=== PATIENT | male | born 1970 | race Caucasian/White ===

== ENCOUNTER 2023-08-08 02:13 | Emergency (ER) | payer SELFPAY ==
[~2023-08-08] VITALS: Ht 177.8 cm; Wt 90.0 kg
[2023-08-08 02:15] VITALS: O2SAT 98
[2023-08-08 02:29] VITALS: BP 131/71; PULSE 112; RESP 21; TEMP 98.4
[2023-08-08 04:00] LABS: BASOPHILS % 0.6 % (0.0-2.0); EOSINOPHILS % 1.7 % (0.0-5.0); HEMATOCRIT. 44.6 % (42.0-52.0); HEMOGLOBIN. 15.1 g/dL (14.0-18.0); LYMPHOCYTES % 19.9 % (20.0-50.0); MEAN CORPUSCULAR HEMOGLOBIN 30.6 pg (28.0-32.0); MEAN CORPUSCULAR HGB CONC 33.8 g/dL (31.0-37.0); MEAN CORPUSCULAR VOLUME 90.6 fL (80.0-94.0); MEAN PLATELET VOLUME 8.1 fl (7.4-10.4); MONOCYTES % 10.7 % (2.0-8.0); NEUTROPHILS % 67.1 % (40.0-76.0); PLATELET 258 x1000/uL (130-400); RED BLOOD CELL COUNT 4.92 mill/uL (4.7-6.1); RED CELL DISTRIBUTION WIDTH 14.2 % (11.6-14.6); WHITE BLOOD COUNT 8.2 x1000/uL (4.5-11.0)
[2023-08-08 04:04] LABS: CHLORIDE 110 mEq/L (98-107); INDEX HEMOLYSI 1 (1-3); INDEX ICTERIC 1 (1-4); INDEX LIPEMIC 1 (1-3); POTASSIUM 3.9 mEq/L (3.5-5.1); SODIUM 143 mEq/L (136-145)
[2023-08-08 04:14] LABS: ALANINE AMINOTRANSFERASE 34 IU/L (13-61); ASPARTATE AMINOTRANSFERASE 42 IU/L (15-37); BILIRUBIN TOTAL 1.4 mg/dL (0.1-1.0); CALCIUM 8.6 mg/dL (8.5-10.1); CARBON DIOXIDE 29 mEq/L (21-32); CREATININE 0.9 mg/dL (0.6-1.3); ETHANOL BLOOD < 10 mg/dL (<10); GLUCOSE 91 mg/dL (70-105); NT PRO B-TYPE NATRIURETIC PEP 33 pg/mL (5-125); PROTEIN TOTAL 8.8 g/dL (6.0-8.3); TROPONIN I HIGH SENSITIVITY 8 ng/L (<78); UREA NITROGEN BLOOD 31 mg/dL (7-21)
[2023-08-08 04:19] LABS: D-DIMER 0.35 mg/L FEU (<0.50); PARTIAL THROMBOPLASTIN TIME 27.9 sec (23.4-31.0); PROTHROMBIN TIME 10.9 sec (9.6-11.0)
== END 2023-08-08 04:26 | disposition left against medical advice (07) ==
LOC: ER 02:13
DX: R07.9 Chest pain, unspecified (principal); F17.200 Nicotine dependence, unspecified, uncomplicated
CPT/HCPCS: 36415; 71045; 80053; 80320; 83880; 84484; 85025; 85379; 93005; 99285; G0480